=== PATIENT | female | born 1970 | race Caucasian/White ===

== ENCOUNTER 2021-10-20 04:21 | Observation (INO) | payer BC ==
[2021-10-20] MEDS ORDERED: Sodium Chloride 0.9% 10 ML Syringe FLUSH PRN ×2 (04:41→09:34)
[2021-10-20] MEDS ORDERED: HYDROmorphone 0.5 MG/0.5 ML Syringe IVPUSH ONE ×3 (04:44→09:24)
[2021-10-20] MEDS ORDERED: Ondansetron 4 MG/2 ML SDV IVPUSH ONE (04:44)
[2021-10-20] MEDS ORDERED: Alum Hydrox/Mag Hydrox/Simeth 30 ML, Lidocaine 2% 15 ML PO ONE ×2 (05:07)
[2021-10-20] MEDS ORDERED: LORazepam 2 MG/ML SDV IVPUSH ONE (05:41)
[2021-10-20] MEDS ORDERED: Lactated Ringers 1,000 ML IV SCH (09:30)
[2021-10-20] MEDS ORDERED: Iopamidol 755 Mg/ML 100 ML Bottle IVPUSH ONE (09:34)
[2021-10-20] MEDS ORDERED: Sodium Chloride 0.9% 100 ML IV SCH (09:45)
[2021-10-20] MEDS ORDERED: Cefepime 2 GM in Sodium Chloride 0.9% 50 ML IV ONE (11:31)
[2021-10-20] MEDS ORDERED: fentaNYL 100 MCG/2 ML SDV IVPUSH ONE ×2 (12:10→14:34)
[2021-10-20] MEDS ORDERED: fentaNYL 250 MCG/5 ML SDV ONE (13:53)
[2021-10-20] MEDS ORDERED: Propofol 200 MG/20 ML SDV ONE (13:53)
[2021-10-20] MEDS ORDERED: Midazolam 1 MG/ML 2 ML SDV ONE (13:53)
[2021-10-20] MEDS ORDERED: Lidocaine 1% 4 ML ONE (13:54)
[2021-10-20] MEDS ORDERED: Rocuronium 50 MG/5 ML Vial ONE (13:54)
[2021-10-20] MEDS ORDERED: Ondansetron 4 MG/2 ML SDV ONE (13:56)
[2021-10-20] MEDS ORDERED: Succinylcholine/Sod PF 100 MG/5 ML SYRINGE IV ONE (13:57)
[2021-10-20] MEDS ORDERED: Bupivacaine 0.5%/EPINEPHrine 1:200,000 50 ML MDV ONE (15:15)
[2021-10-20] MEDS ORDERED: ceFAZolin 1 GM Vial ONE (15:18)
[2021-10-20] MEDS ORDERED: Dexamethasone 4 MG/ML 5 ML MDV ONE (15:30)
[2021-10-20] MEDS ORDERED: Ketorolac 30 MG/ML SDV ONE (15:30)
[2021-10-20] MEDS ORDERED: Lactated Ringers 0 ML ONE (15:31)
[2021-10-20] MEDS ORDERED: Lactated Ringers 1,000 ML ONE ×2 (16:09)
[2021-10-20] MEDS ORDERED: Ketamine 500 mg/10 ML MDV ONE (16:11)
[2021-10-20] MEDS ORDERED: Ondansetron 4 MG/2 ML SDV IVPUSH PRN ×2 (17:02→17:12)
[2021-10-20] MEDS ORDERED: HYDROmorphone 0.5 MG/0.5 ML Syringe IVPUSH PRN ×2 (17:02→17:12)
[2021-10-20] MEDS ORDERED: fentaNYL 100 MCG/2 ML SDV IVPUSH PRN (17:02)
[2021-10-20] MEDS ORDERED: Docusate Sodium 100 MG Cap PO PRN (17:12)
[2021-10-20] MEDS ORDERED: Acetaminophen 325 MG Tab PO PRN (17:12)
[2021-10-21] MEDS ORDERED: Aluminum Hydroxide/Magnesium Hydroxide/Simethicone Susp 30 ML Cup PO PRN (02:20)
[2021-10-21] MEDS: Acetaminophen/HYDROcodone 325-5 MG Tab PO PRN ×2 (08:18→12:27)
== END 2021-10-21 16:40 | disposition home or self-care (01) ==
LOC: JD.ED 04:21 → JD.SDS 13:49 → JD.MS 17:07
PROVIDERS: ADMIT Surgery; ATTEND Surgery
DX: K80.00 Calculus of gallbladder with acute cholecystitis without obstruction (principal); E66.9 Obesity, unspecified; F17.210 Nicotine dependence, cigarettes, uncomplicated; Z79.899 Other long term (current) drug therapy; Z88.0 Allergy status to penicillin; Z68.30 Body mass index [BMI] 30.0-30.9, adult
CPT/HCPCS: 36415; 47562; 71045; 71275; 76705; 80048; 80053; 83690; 84484; 85025; 93005; 94760; 96365; 96375; 96376; 99285; A9270; G0378; J0330; J0690; J0692; J1100; J1170; J1885; J2060; J2250; J2370; J2405; J2704; J2710; J3010; J3490; J7120; Q9967; 00790; 93010; 99140